=== PATIENT | male | born 1980 | race Caucasian/White ===

== ENCOUNTER 2018-08-29 15:44 | Emergency (ER) | payer BC ==
[2018-08-29 15:55] VITALS: TEMP 98.6; BMI 31.6
--- NOTE | 2018-08-29 15:57 | PDOC ---
Rapid Medical Evaluation Time Seen by Provider: 08/29/18 15:53 Medical Evaluation: Allergies Allergy/AdvReac Type Severity Reaction Status Date / Time No Known Allergies Allergy Verified 04/12/16 22:36 08/29/18 15:53 Pt presents for abdominal pain for the last 3 days. Describes it as a crampy/ burning sensation. Pain increased today, so he presents to the ED for evaluation. Endorses marijuana use Exam: NAD. TTP of the LLQ. Orders: Labs, IV Pt to proceed to the ED for further evaluation Discharge Disposition - Diagnosis Abdominal pain Qualifiers: Abdominal location: left lower quadrant Qualified Code(s): R10.32 - Left lower quadrant pain - Referrals - Patient Instructions - Post Discharge Activity
[2018-08-29 16:17] LABS: BASO % 0.2 % (0-2.0); EOS % 0.9 % (0-4.5); HEMATOCRIT 45.7 % (35.4-49); HEMOGLOBIN 14.8 GM/dL (11.7-16.9); LYMPH % 7.2 % (8-40); MCHC 32.5 g/dl (32.0-35.9); MEAN PLT VOLUME 7.6 fl (7.5-11.1); MONO % 4.8 % (3.8-10.2); NEUT % 86.9 % (42.8-82.8); PLATELET COUNT 260 K/MM3 (134-434); RDW 13.9 % (11.9-15.9); WHITE BLOOD COUNT 14.6 K/mm3 (4.0-10.0)
[2018-08-29 16:17] LABS: PH,URINE >= 9.0 (5.0-8.0); URINE APPEARANCE CLEAR; URINE BILIRUBIN NEGATIVE (NEGATIVE); URINE COLOR YELLOW; URINE GLUCOSE (UA) NEGATIVE (NEGATIVE); URINE KETONE 2+ (NEGATIVE); URINE LEUK ESTERASE NEGATIVE (NEGATIVE); URINE NITRITE NEGATIVE (NEGATIVE); URINE PROTEIN NEGATIVE (NEGATIVE)
[2018-08-29 16:36] LABS: ALBUMIN 4.5 g/dl (3.4-5.0); ALK PHOS 73 U/L (45-117); ANION GAP 7 MMOL/L (8-16); BILIRUBIN,TOTAL 0.9 mg/dL (0.2-1); BLOOD UREA NITROGEN 15 mg/dL (7-18); CALCIUM 9.7 mg/dL (8.5-10.1); CHLORIDE 103 mmol/L (98-107); CO2 28 mmol/L (21-32); CREATININE 0.8 mg/dL (0.55-1.3); GLUCOSE,RANDOM 101 mg/dL (74-106); POTASSIUM 3.3 mmol/L (3.5-5.1); SGOT/AST 18 U/L (15-37); SGPT/ALT 27 U/L (13-61); SODIUM 137 mmol/L (136-145); TOT PROT 8.1 g/dl (6.4-8.2)
--- NOTE | 2018-08-29 17:22 | PDOC ---
History of Present Illness - General Chief Complaint: Pain Stated Complaint: ABD PAIN Time Seen by Provider: 08/29/18 15:53 History Source: Patient - History of Present Illness Timing/Duration: reports: getting worse Abdominal Pain Onset Location: reports: LLQ Past History - Past Medical History Allergies/Adverse Reactions: Allergies Allergy/AdvReac Type Severity Reaction Status Date / Time No Known Allergies Allergy Verified 08/29/18 15:54 Home Medications: Ambulatory Orders No Home Medications 0 dose .ROUTE UTDICT 02/26/13 Asthma: Yes COPD: No - Immunization History Immunization Up to Date: No - Suicide/Smoking/Psychosocial Hx Smoking Status: Yes Smoking History: Never smoked Number of Cigarettes Smoked Daily: 20 Drug/Substance Use Hx: Yes ([facility]) Review of Systems - Review of Systems Constitutional: No: Chills, Fever ABD/GI: Yes: Constipated. No: Blood Streaked Bowels, Diarrhea, Nausea, Rectal Bleeding, Vomiting, Tarry Stools : No: Dysuria, Discharge, Hematuria Musculoskeletal: No: Back Pain *Physical Exam - Vital Signs Last Vital Signs Temp Pulse Resp BP Pulse Ox 98.6 F 73 18 119/62 100 08/29/18 15:54 08/29/18 15:54 08/29/18 15:54 08/29/18 15:54 08/29/18 15:54 - Physical Exam General Appearance: Yes: Appropriately Dressed. No: Apparent Distress HEENT: positive: Normal Voice Neck: positive: Supple Respiratory/Chest: negative: Respiratory Distress Gastrointestinal/Abdominal: positive: Normal Bowel Sounds, Tender, Soft. negative: Distended, Guarding, Rebound Musculoskeletal: negative: CVA Tenderness Integumentary: positive: Dry, Warm Neurologic: positive: Fully Oriented, Alert, Normal Mood/Affect ED Treatment Course - LABORATORY CBC & Chemistry Diagram: 08/29/18 16:04 08/29/18 16:04 - ADDITIONAL ORDERS Additional order review: Laboratory Results 08/29/18 08/29/18 16:04 16:00 Sodium 137 Potassium 3.3 L Chloride 103 Carbon Dioxide 28 Anion Gap 7 L BUN 15 Creatinine 0.8 Creat Clearance w eGFR 108.77 Random Glucose 101 Calcium 9.7 Total Bilirubin 0.9 AST 18 ALT 27 Alkaline Phosphatase 73 Total Protein 8.1 Albumin 4.5 Urine Color Yellow Urine Appearance Clear Urine pH >= 9.0 H D Ur Specific [place] 1.021 Urine Protein Negative Urine Glucose (UA) Negative Urine Ketones 2+ H Urine Blood Negative Urine Nitrite Negative Urine Bilirubin Negative Urine Urobilinogen 1.0 Ur Leukocyte Esterase Negative 08/29/18 16:04 RBC 5.50 MCV 83.0 MCHC 32.5 RDW 13.9 MPV 7.6 Neutrophils % 86.9 H Lymphocytes % 7.2 L D Monocytes % 4.8 Eosinophils % 0.9 D Basophils % 0.2 Medical Decision Making - Medical Decision Making 08/29/18 17:17 38 yo M, no sig hx, here w/ no problem intermittent burning pain to L side of abdomen 1 week, that worsened today after lifting heavy equipment at work. Reports possible constipation this week that is not new for him, but no BRBPR, melena, nausea, vomiting, fever, chills, dysuria, penile discharge, testicular pain or swelling See exam R/o diverticulitis, less likely renal colic, uti/pyelo Stable w/ minimal ttp to LLQ Declines pain meds here Labs done at triage remarkable for wbc of 14 -CT 08/29/18 18:46 CT read pending. Pt signed out to SILVIA Mahoney at this time *DC/Admit/Observation/Transfer Diagnosis at time of Disposition: Diverticulosis of colon without diverticulitis - Discharge Dispostion Disposition: HOME Condition at time of disposition: Fair - Referrals Referrals: Aneesh Lynn MD [Primary Care Provider] - - Patient Instructions Additional Instructions: Your CAT scan shows a 1 cm nodule in her left adrenal gland. There is recommended to follow-up to primary doctor for additional blood work and repeat imaging within the next 3 months. Take Tylenol or Motrin as needed for pain. Follow predictive maintenance specialist's instructions for appropriate dosage. Eat a diet high in fiber. It is advisable to bland or pure all nuts and seeds. Drink plenty of fluids. Return to emergency department for any new or worsening symptoms. Thank you very much for choosing us to provide your emergent health care needs. - Post Discharge Activity Forms/Work/School Notes: Back to Work
[2018-08-29 19:02] VITALS: BP 122/71; PULSE 68
--- NOTE | 2018-08-29 19:16 | PDOC ---
*Physical Exam - Vital Signs Last Vital Signs Temp Pulse Resp BP Pulse Ox 98.6 F 68 16 122/71 98 08/29/18 15:54 08/29/18 19:01 08/29/18 19:01 08/29/18 19:01 08/29/18 19:01 - Physical Exam Gastrointestinal/Abdominal: positive: Normal Bowel Sounds, Tender (LLQ.), Soft. negative: Guarding, Hernia, Mass ED Treatment Course - LABORATORY CBC & Chemistry Diagram: 08/29/18 16:04 08/29/18 16:04 - ADDITIONAL ORDERS Additional order review: Laboratory Results 08/29/18 08/29/18 16:04 16:00 Sodium 137 Potassium 3.3 L Chloride 103 Carbon Dioxide 28 Anion Gap 7 L BUN 15 Creatinine 0.8 Creat Clearance w eGFR 108.77 Random Glucose 101 Calcium 9.7 Total Bilirubin 0.9 AST 18 ALT 27 Alkaline Phosphatase 73 Total Protein 8.1 Albumin 4.5 Urine Color Yellow Urine Appearance Clear Urine pH >= 9.0 H D Ur Specific [place] 1.021 Urine Protein Negative Urine Glucose (UA) Negative Urine Ketones 2+ H Urine Blood Negative Urine Nitrite Negative Urine Bilirubin Negative Urine Urobilinogen 1.0 Ur Leukocyte Esterase Negative 08/29/18 16:04 RBC 5.50 MCV 83.0 MCHC 32.5 RDW 13.9 MPV 7.6 Neutrophils % 86.9 H Lymphocytes % 7.2 L D Monocytes % 4.8 Eosinophils % 0.9 D Basophils % 0.2 Progress Note - Progress Note Progress Note: Received signout from MICHELLE Banks. Briefly this is a 38-year-old male denies medical history with burning sensation to the left side of his abdomen which is been intermittent over one week. The pain became worse today after some heavy lifting. Laboratory testing is remarkable for WBC of 14,000. Patient received complete relief of pain without intervention. At this time CT scan was performed and pending read. Medical Decision Making - Medical Decision Making 08/29/18 20:15 CT scan is read by Dr. Gamboa: There is parents mild concentric colonic wall thickening over the length of 2 cm at the junction of the descending and sigmoid colon. Experience maybe the basis of transient peristalsis probably less likely representing inflammatory/ infectious change. A neoplastic lesion is considered least likely on the basis of this study. No pericolonic edema or fluid is seen. Unless otherwise clinically indicated correlation with the follow-up nonemergent CT is suggested with oral contrast. Diverticulosis is seen within the lower aspect of the sigmoid colon without evidence of acute diverticulitis at that level. A 1 cm left adrenal nodule is noted very likely representing an adenoma on a statistical basis. Biochemical evaluation is suggested as well as three-month follow-up MRI/CT. A copy of the patient's CT report has been provided to the patient to bring to his PMD for evaluation. I discussed the physical exam findings, ancillary test results and final diagnoses with the patient. I answered all of the patient's questions. The patient was satisfied with the care received and felt comfortable with the discharge plan and treatment plan. The patient will call their primary care physician within 24 hours to arrange follow-up and will return to the Emergency Department with any new, persistent or worsening symptoms. *DC/Admit/Observation/Transfer Diagnosis at time of Disposition: Diverticulosis of colon without diverticulitis - Discharge Dispostion Disposition: HOME Condition at time of disposition: Fair Decision to Admit order: No - Referrals Referrals: Aneesh Lynn MD [Primary Care Provider] - - Patient Instructions Additional Instructions: Your CAT scan shows a 1 cm nodule in her left adrenal gland. There is recommended to follow-up to primary doctor for additional blood work and repeat imaging within the next 3 months. Take Tylenol or Motrin as needed for pain. Follow ballistics tester's instructions for appropriate dosage. Eat a diet high in fiber. It is advisable to bland or pure all nuts and seeds. Drink plenty of fluids. Return to emergency department for any new or worsening symptoms. Thank you very much for choosing us to provide your emergent health care needs. - Post Discharge Activity Forms/Work/School Notes: Back to Work
== END 2018-08-29 20:31 | disposition home or self-care (01) ==
LOC: JER 15:44
DX: R10.32 Left lower quadrant pain (principal)
CPT/HCPCS: 36415; 74177-TC; 80053; 81003; 85025; 87086; 99283-25

== ENCOUNTER 2019-11-26 09:09 | Day surgery (SDC) | payer BC ==
[2019-11-26 09:34] VITALS: BMI 32.2
[2019-11-26] MEDS ORDERED: LIDOCAINE HCL 2% JELLY 10 ML CARTRIDGE ONE (09:40)
[2019-11-26 10:29] VITALS: TEMP 98.3
[2019-11-26 11:03] VITALS: BP 125/78; PULSE 63
== END 2019-11-26 11:31 | disposition home or self-care (01) ==
LOC: JASU-ENDO 09:09
PROVIDERS: ATTEND Internal Medicine Gastroenterology
PROC: 06LY4CC Occlusion of Hemorrhoidal Plexus with Extraluminal Device, Percutaneous Endoscopic Approach (ICD-10-PCS; principal; 2019-11-26 10:00)
DX: K64.8 Other hemorrhoids (principal)